=== PATIENT | female | born 2000 | race Caucasian/White ===

== ENCOUNTER 2021-01-10 02:50 | Emergency (ER) | payer OTHER ==
[~2021-01-10] VITALS: Ht 162.6 cm; Wt 120.2 kg
[2021-01-10 02:57] VITALS: BP 141/73
--- NOTE | 2021-01-10 03:00 | NUR ---
TO LOBBY A/W BED AMBULATORY
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
--- NOTE | 2021-01-10 04:08 | NUR ---
PATIENT AMBULATED TO RESTROOM.
--- NOTE | 2021-01-10 04:22 | NUR ---
ERMD AT BEDSIDE PERFORMING ASSESSMENT.
[2021-01-10] MEDS ORDERED: ACETAMINOPHEN EXTRA STRENGTH 500 MG TAB PO ONE (04:30)
[2021-01-10 04:43] VITALS: BP 141/73
--- NOTE | 2021-01-10 04:43 | NUR ---
Patient discharged with v/s stable. Written and verbal after care instructions given and explained. Patient verbalized understanding. Ambulatory with steady gait. All questions addressed prior to discharge. Advised to follow up with PMD.
== END 2021-01-10 04:43 | disposition home or self-care (01) ==
LOC: MED 02:50
DX: R51.9 Headache, unspecified (principal); F41.9 Anxiety disorder, unspecified; V98.8XXA Other specified transport accidents, initial encounter; Y93.89 Activity, other specified; Y92.89 Other specified places as the place of occurrence of the external cause; Y99.8 Other external cause status
CPT/HCPCS: 99282